=== PATIENT | male | born 1980 | race Hispanic/Latino ===

== ENCOUNTER 2023-01-22 15:51 | Emergency (ER) | payer BC ==
[~2023-01-22] VITALS: Ht 167.6 cm; Wt 80.7 kg
[2023-01-22] MEDS ORDERED: TETANUS/DIPHTHERIA TOX ADULT 0.5 ML SYR IM ONE (16:30)
[2023-01-22] MEDS ORDERED: BACITRACIN ZINC 15 GM OINT TOP SCH (17:00)
[2023-01-22] MEDS ORDERED: NEOMYCIN/POLYMYX/BACITR OINT 0.9 GM PKT ONE (17:16)
[2023-01-22] MEDS ORDERED: TETANUS/DIPHTHERIA TOX ADULT 0.5 ML SYR ONE (17:17)
[2023-01-22] MEDS ORDERED: NAPROSYN500 MG PO (17:34)
[2023-01-22] MEDS ORDERED: CLEOCIN HCL300 MG PO (17:36)
== END 2023-01-22 17:52 | disposition home or self-care (01) ==
LOC: FSED 16:43
DX: S61.412A Laceration without foreign body of left hand, initial encounter (principal); S63.92XA Sprain of unspecified part of left wrist and hand, initial encounter; W20.8XXA Other cause of strike by thrown, projected or falling object, initial encounter; Y92.89 Other specified places as the place of occurrence of the external cause
CPT/HCPCS: 90714; 99283